=== PATIENT | female | born 1950 | race Hispanic/Latino ===

== ENCOUNTER 2017-11-14 07:54 | Day surgery (SDC) | payer BC ==
[2017-11-14] MEDS ORDERED: WATER FOR IRRIG STERILE IR ONE (08:02)
[2017-11-14] MEDS ORDERED: NACL 0.9% 1000 ML 1,000 ML IV SCH (09:00)
[2017-11-14] MEDS ORDERED: DIPRIVAN 10 MG/ML IV ONE ×2 (10:14)
--- NOTE | 2017-11-14 10:33 | Anesthesia Consultation ---
Anesthesia Consult and Med Hx Date of service: 11/14/17 - Airway Anesthetic Teeth Evaluation: Good ROM Head & Neck: Adequate Mental/Hyoid Distance: Adequate Mallampati Class: Class II Intubation Access Assessment: Probably Good - Pre-Operative Health Status ASA Pre-Surgery Classification: ASA2 Proposed Anesthetic Plan: MAC - Pulmonary Hx Smoking: Yes (former smoker)
--- NOTE | 2017-11-14 10:34 | Anesthesia Day of Surgery ---
Anesthesia Day of Surgery - Day of Surgery Patient Examined: Yes Patient H&P Reviewed: Yes Patient is NPO: Yes
--- NOTE | 2017-11-14 10:48 | History and Physical Report ---
HISTORY OF PRESENT ILLNESS: This is a 67-year-old white female in otherwise good health who has a family history of cancer. The patient's grandfather had lung cancer, but did have a history of smoking. The patient is to have a colonoscopy done as part of colon polyp screening. Last colonoscopy was more than 10 years ago. She has been having some problems with constipation and changes in bowel habits and will be empirically tried on Linzess, also has been asked to have a colonoscopy done for further assessment which she is about to do. ALLERGIES: She has a history of allergies to SULFA, CODEINE, PENICILLIN, and ANTIBIOTICS. SOCIAL HISTORY: Denies any history of smoking or alcohol use. No cardiac issues. She has had flu shots. The patient has a prior history of 3 C-sections and a fractured fibula involving the right lower extremity. PHYSICAL EXAMINATION: VITAL SIGNS: She is afebrile, blood pressure 130/90, pulse is 83, height is 5 feet and 8 inches, weight is 176 pounds. HEENT: Shows no JVD. LUNGS: Clear to auscultation. CARDIOVASCULAR: Normal. ABDOMEN: Soft. Bowel sounds present. NEUROLOGIC: The patient neurologically is otherwise alert and oriented. ASSESSMENT: Colon polyp screening, changes in bowel habits with constipation, family history of cancer. PLAN: To do a colonoscopy at [facility] on 11/14/2017. JOB# [id number] TRACIE/MEGAN BOURGEOIS
--- NOTE | 2017-11-14 10:50 | Procedure Note ---
Date of procedure: 11/14/17 Pre-op diagnosis: Colon Polyp Screening Post-op diagnosis: other (Few Right and Left Colon Diverticular Disease/ No Colon Polyps noted) Anesthesia: MAC Surgeon: KATHY GAITAN Estimated blood loss: none Pathology: none Condition: stable (Encourage fiber intake and follow up in 1 to 2 weeks ).)
[2017-11-14 11:32] VITALS: BP 115/57
--- NOTE | 2017-11-14 13:30 | Operative Report ---
PROCEDURE: Colonoscopy. INDICATIONS: This is a 67-year-old white female who has had a prior history of cholecystectomy, 3 prior C-sections. Does have a family history of cancer. Last colonoscopy was done more than 10 years ago. Repeat colonoscopy was done to make sure that there was not any colon polyps present. DESCRIPTION OF PROCEDURE: Procedure was done after getting informed consent with MAC anesthesia. Initial rectal exam was unremarkable. Instrument was passed through the rectum onto the cecum, which was identified with ileocecal valve and appendiceal orifice. Visualization was fair to good. Cecum showed a few diverticula on the proximal colon. Descending colon, transverse colon showed normal mucosa. There were a few minor diverticula noted in the left colon and the rectum appeared normal in the retroverted view. There were no biopsies done. No bleeding associated with the procedure. ASSESSMENT: Colon polyp screening, no colon polyps noted. Few left and right colon diverticular disease noted. No internal hemorrhoid noted. The patient will be encouraged to take fiber supplements. Follow up in the office in 1-2 weeks' time. Nurse, Ronel Bradshaw, the GI pharmacy laboratory technician was in the procedure room during the entirety of the procedure. JOB# [id number] TRACIE/MEGAN
== END 2017-11-14 07:55 | disposition home or self-care (01) ==
LOC: GIO 07:54
DX: K57.30 Diverticulosis of large intestine without perforation or abscess without bleeding (principal); K59.00 Constipation, unspecified; E78.00 Pure hypercholesterolemia, unspecified; Z88.2 Allergy status to sulfonamides; Z88.1 Allergy status to other antibiotic agents; Z88.5 Allergy status to narcotic agent; Z88.0 Allergy status to penicillin; Z90.49 Acquired absence of other specified parts of digestive tract; Z87.891 Personal history of nicotine dependence; Z98.891 History of uterine scar from previous surgery; Z80.1 Family history of malignant neoplasm of trachea, bronchus and lung
CPT/HCPCS: 45380; J2704; J7030